=== PATIENT | female | born 1965 | race Caucasian/White ===

== ENCOUNTER 2022-02-26 08:16 | Outpatient (CLI) | payer BC | END 2022-02-26 08:17 | disposition home or self-care (01) | LOC: CSHMAMMO 08:16 | PROVIDERS: ATTEND Physician Assistant | DX: Z12.31 Encounter for screening mammogram for malignant neoplasm of breast (principal); Z85.820 Personal history of malignant melanoma of skin; Z80.3 Family history of malignant neoplasm of breast | CPT/HCPCS: 77063; 77067 ==

== ENCOUNTER 2023-03-26 11:26 | Outpatient (CLI) | payer BC | END 2023-03-26 11:27 | disposition home or self-care (01) | LOC: CSHMAMMO 11:26 | PROVIDERS: ATTEND Physician Assistant | DX: Z12.31 Encounter for screening mammogram for malignant neoplasm of breast (principal); Z80.3 Family history of malignant neoplasm of breast | CPT/HCPCS: 77063; 77067 ==

== ENCOUNTER 2024-04-06 12:30 | Outpatient (CLI) | payer BC | END 2024-04-06 12:31 | disposition home or self-care (01) | LOC: CSHMAMMO 12:30 | PROVIDERS: ATTEND Physician Assistant | DX: Z12.31 Encounter for screening mammogram for malignant neoplasm of breast (principal); Z80.3 Family history of malignant neoplasm of breast; Z85.820 Personal history of malignant melanoma of skin | CPT/HCPCS: 77063; 77067 ==